=== PATIENT | female | born 1955 | race Caucasian/White ===

== ENCOUNTER 2023-04-04 13:37 | Outpatient (CLI) | payer MEDICARE, BC, SELFPAY | END 2023-04-04 13:38 | disposition home or self-care (01) | PROVIDERS: PCP Family Medicine; Visit Provider Family Medicine | DX: M85.80 Other specified disorders of bone density and structure, unspecified site (principal); Z79.899 Other long term (current) drug therapy | CPT/HCPCS: 80053; 80061; 82306 ==

== ENCOUNTER 2024-01-02 14:08 | Outpatient (CLI) | payer MEDICARE, BC, SELFPAY | END 2024-01-02 14:09 | disposition home or self-care (01) | LOC: NFLDREF 01-06 17:53 | PROVIDERS: PCP Family Medicine; Referring Provider Family Medicine; Visit Provider Family Medicine | DX: R35.0 Frequency of micturition (principal); R63.1 Polydipsia; R45.89 Other symptoms and signs involving emotional state; L98.9 Disorder of the skin and subcutaneous tissue, unspecified; R41.3 Other amnesia | CPT/HCPCS: 87086; 87186 ==

== ENCOUNTER 2024-05-25 13:22 | Outpatient (CLI) | payer MEDICARE, BC, SELFPAY | END 2024-05-25 13:23 | disposition home or self-care (01) | PROVIDERS: PCP Family Medicine; Visit Provider Family Medicine | DX: M85.80 Other specified disorders of bone density and structure, unspecified site (principal); Z13.6 Encounter for screening for cardiovascular disorders | CPT/HCPCS: 80053; 80061 ==

== ENCOUNTER 2024-10-06 12:57 | Outpatient (CLI) | payer MEDICARE, BC, SELFPAY | END 2024-10-06 12:58 | disposition home or self-care (01) | LOC: NFLDREF 10-08 22:37 | PROVIDERS: PCP Family Medicine; Referring Provider Family Medicine; Visit Provider Family Medicine | DX: M54.9 Dorsalgia, unspecified (principal); R82.90 Unspecified abnormal findings in urine | CPT/HCPCS: 87086 ==

== ENCOUNTER 2024-10-08 09:51 | Outpatient (CLI) | payer MEDICARE, BC, SELFPAY | END 2024-10-08 09:52 | disposition home or self-care (01) | LOC: FRMREF 09:51 | PROVIDERS: PCP Family Medicine; Visit Provider Family Medicine | DX: I25.2 Old myocardial infarction (principal) | CPT/HCPCS: 80048 ==